=== PATIENT | female | born 1995 | race African-American/Black ===

== ENCOUNTER 2024-12-13 11:31 | Emergency (ER) | payer MEDICAID ==
[~2024-12-13] VITALS: Ht 167.6 cm; Wt 104.0 kg
[2024-12-13 11:34] VITALS: O2SAT 98
[2024-12-13 12:25] LABS: BASOPHILS % 0.2 % (0.0-2.0); DIFFERENTIAL COMMENT 0; EOSINOPHILS % 0.8 % (0.0-5.0); HEMATOCRIT. 35.1 % (36.0-48.0); HEMOGLOBIN. 11.4 g/dL (12.0-16.0); LYMPHOCYTES % 19.3 % (20.0-50.0); MEAN CORPUSCULAR HEMOGLOBIN 25.6 pg (28.0-32.0); MEAN CORPUSCULAR HGB CONC 32.4 g/dL (31.0-37.0); MEAN CORPUSCULAR VOLUME 78.9 fL (81.0-99.0); MEAN PLATELET VOLUME 8.9 fl (7.4-10.4); MONOCYTES % 6.6 % (2.0-8.0); NEUTROPHILS % 73.1 % (40.0-76.0); PLATELET 294 x1000/uL (130-400); RED BLOOD CELL COUNT 4.45 mill/uL (4.2-5.4); RED CELL DISTRIBUTION WIDTH 18.1 % (11.6-14.6)
[2024-12-13 12:40] LABS: CHLORIDE 103 mEq/L (98-107); HCG SCREEN NEGATIVE; POTASSIUM 3.7 mEq/L (3.5-5.1); SODIUM 140 mEq/L (136-145)
[2024-12-13 12:41] LABS: CALCIUM 8.5 mg/dL (8.7-10.4); CARBON DIOXIDE 27 mEq/L (21-32)
[2024-12-13 12:46] LABS: CREATININE 0.9 mg/dL (0.6-1.0); GLUCOSE 115 mg/dL (70-105); UREA NITROGEN BLOOD 11 mg/dL (9-23)
[2024-12-13 15:09] VITALS: BP 140/80; PULSE 94; RESP 17; TEMP 37.2; O2SAT 100
== END 2024-12-13 15:10 | disposition home or self-care (01) ==
LOC: ER 11:31
DX: R55 Syncope and collapse (principal); I10 Essential (primary) hypertension; Z79.899 Other long term (current) drug therapy
CPT/HCPCS: 36415; 80048; 81025; 84703; 85025; 93005; 99284